=== PATIENT | female | born 1975 | race Asian ===

== ENCOUNTER 2018-08-24 00:30 | Inpatient (IN) | payer SELFPAY ==
[~2018-08-24] VITALS: Ht 162.6 cm; Wt 73.0 kg
[2018-08-24] MEDS ORDERED: PROMETHAZINE 25 MG/ML VIAL IVP PRN (00:55)
[2018-08-24] MEDS ORDERED: METHYLERGONOVINE 0.2 MG/ML AMP IM PRN (00:55)
[2018-08-24] MEDS ORDERED: NALBUPHINE 10 MG/ML AMP IVP PRN (00:55)
[2018-08-24] MEDS ORDERED: OXYTOCIN 20 UNITS in LACTATED RINGERS 1,000 ML IV SCH (00:55)
[2018-08-24] MEDS ORDERED: AMPICILLIN 2,000 MG in NACL 0.9% MINI-BAG PLUS 100 ML IV SCH (01:30)
[2018-08-24] MEDS ORDERED: OXYTOCIN 10 UNITS/ML VIAL IM ONE (01:30)
[2018-08-24 02:12] LABS: WHITE BLOOD COUNT (AUTO) 9.2 K/uL (4.8-10.8)
[2018-08-24 02:13] LABS: HEMATOCRIT 34.8 % (36-48); HEMOGLOBIN 12.3 g/dL (12.0-16.0); MEAN CORPUSCULAR HEMOGLOBIN 35 pg (27-31); MEAN CORPUSCULAR HGB CONC 35 g/dL (33-37); MEAN CORPUSCULAR VOLUME 99.4 fL (80-94); PLATELET COUNT (AUTO) 173 K/uL (140-450); RED CELL DISTRIBUTION WIDTH 14.1 % (11.6-13.7)
[2018-08-24 02:14] LABS: BASOPHILS % (AUTO) 0.2 % (0.0-2.0); EOSINOPHILS # (AUTO) 0.1 K/uL (0-0.4); EOSINOPHILS % (AUTO) 0.6 % (0.0-4.0); LYMPHOCYTES # (AUTO) 1.9 K/uL (2.5-16.5); LYMPHOCYTES % (AUTO) 20.3 % (20.5-51.1); MONOCYTES # (AUTO) 0.6 K/uL (0.8-1.0); MONOCYTES % (AUTO) 6.7 % (1.7-9.3); NEUTROPHILS # (AUTO) 6.6 K/uL (1.8-7.7); NEUTROPHILS % (AUTO) 72.2 % (42.2-75.2)
[2018-08-24 03:07] LABS: APPEARANCE,URINE CLEAR (CLEAR); BILIRUBIN,URINE NEGATIVE (NEGATIVE); BLOOD, URINE NEGATIVE (NEGATIVE); COLOR,URINE YELLOW (YELLOW); LEUKOCYTE ESTERASE ,URINE TRACE (NEGATIVE); NITRITE, URINE NEGATIVE (NEGATIVE); UGLUCOSE NEGATIVE (NEGATIVE)
[2018-08-24 03:47] LABS: RBC,URINE 0-5 (RARE) /HPF (0-5)
[2018-08-24] MEDS ORDERED: AMPICILLIN 1,000 MG in NACL 0.9% MINI-BAG PLUS 50 ML IV SCH (04:00)
[2018-08-24] MEDS: LACTATED RINGERS 1,000 ML IV SCH ×3 (04:50→07:37)
[2018-08-24 05:39] VITALS: BP 107/58
[2018-08-24] MEDS ORDERED: ROPIVACAINE 0.2%/NS PREMIX 250 ML EPI ONE (06:35)
[2018-08-24] MEDS ORDERED: OXYTOCIN 20 UNITS/LR PREMIX 1,000 ML IV ONE (07:58)
--- NOTE | 2018-08-24 09:05 | NUR ---
PATIENT HAS BEEN SCREENED AND CATEGORIZED LOW NUTRITION RISK. PATIENT WILL BE SEEN WITHIN 7 DAYS OF ADMISSION. 08/30/[address]
[2018-08-24] MEDS ORDERED: OXYTOCIN 10 UNITS/ML VIAL ONE (11:14)
[2018-08-24] MEDS ORDERED: TEMAZEPAM 15 MG CAP PO PRN (15:35)
[2018-08-24] MEDS ORDERED: BENZOCAINE/MENTHOL 20%-0.5% 60 GM CAN TP PRN (15:35)
[2018-08-24] MEDS ORDERED: oxyCODONE/APAP 5/325 MG 1 TAB TAB PO PRN (15:35)
[2018-08-24] MEDS: IBUPROFEN 800 MG TAB PO PRN (17:45)
[2018-08-24] MEDS: HYDROcodone/APAP 5/325 MG 1 TAB TAB PO PRN (19:32)
[2018-08-24] MEDS ORDERED: DOCUSATE SOD/SENNA 50/8.6 MG 1 TAB PO SCH (21:00)
[2018-08-25] MEDS ORDERED: MEASLES, MUMPS, AND RUBELLA 1 VIAL SQVAC PRN (00:30)
[2018-08-25] MEDS: HYDROcodone/APAP 5/325 MG 1 TAB TAB PO PRN (01:31)
[2018-08-25 07:46] LABS: HEMATOCRIT 33.5 % (36-48); HEMOGLOBIN 11.1 g/dL (12.0-16.0)
[2018-08-25] MEDS: IBUPROFEN 800 MG TAB PO PRN (12:51)
== END 2018-08-25 16:20 | disposition home or self-care (01) | DRG 775 ==
LOC: MLD 00:30 → MFCC 14:30
PROVIDERS: ADMIT Obstetrics & Gynecology; ATTEND Obstetrics & Gynecology
PROC: 10E0XZZ Delivery of Products of Conception, External Approach (ICD-10-PCS; principal; 2018-08-24)
PROC: 0KQM0ZZ Repair Perineum Muscle, Open Approach (ICD-10-PCS; 2018-08-24)
PROC: 10907ZC Drainage of Amniotic Fluid, Therapeutic from Products of Conception, Via Natural or Artificial Opening (ICD-10-PCS; 2018-08-24)
PROC: 00HU33Z Insertion of Infusion Device into Spinal Canal, Percutaneous Approach (ICD-10-PCS; 2018-08-24)
PROC: 3E0R3BZ Introduction of Anesthetic Agent into Spinal Canal, Percutaneous Approach (ICD-10-PCS; 2018-08-24)
PROC: 3E0234Z Introduction of Serum, Toxoid and Vaccine into Muscle, Percutaneous Approach (ICD-10-PCS; 2018-08-25)
PROC: 3E0234Z Introduction of Serum, Toxoid and Vaccine into Muscle, Percutaneous Approach (ICD-10-PCS; 2018-08-25)
DX: O69.1XX0 Labor and delivery complicated by cord around neck, with compression, not applicable or unspecified (principal); Z37.0 Single live birth; O70.1 Second degree perineal laceration during delivery; Z3A.39 39 weeks gestation of pregnancy; Z23 Encounter for immunization
CPT/HCPCS: 36415; 51702; 59409; 81001; 85018; 85025; 86592; 86886; 86900; 86901; 87086; 90707; 90715; J2590; J2795; J7120